=== PATIENT | male | born 1965 | race Caucasian/White ===

== ENCOUNTER 2024-10-07 07:20 | Emergency (ER) | payer MEDICARE, SELFPAY ==
[2024-10-07 07:26] VITALS: BP 176/86; PULSE 75; RESP 16; TEMP 36.8; O2SAT 100
--- NOTE | 2024-10-07 07:45 | DI.RAD_ITS ---
Exam(s) XR HAND LT COMPLETE EXAM: XR HAND LT COMPLETE CLINICAL HISTORY: pain. TECHNIQUE: 2D digital imaging was performed. COMPARISON: CR,XR XR HAND RT COMPLETE from 10/07/2024 FINDINGS: 3 views No evidence of fracture nor subluxations. No osseous lesions nor erosions. No radiopaque foreign bodies. Metacarpophalangeal joints appear unremarkable. There are mild degenerative changes in the DIP joints. Bone density normal. No osseous lesions. IMPRESSION: Acute osseous findings. DATA REPOSITORY: RADIATION DOSE DELIVERED:
--- NOTE | 2024-10-07 07:45 | DI.RAD_ITS ---
Exam(s) XR HAND RT COMPLETE EXAM: XR HAND RT COMPLETE CLINICAL HISTORY: pain. TECHNIQUE: 2D digital imaging was performed. COMPARISON: CR,XR XR HAND LT COMPLETE from 10/07/2024 FINDINGS: 3 views No evidence of acute fracture or subluxation. Mild degenerative changes are noted in the DIP joints. There is a benign-appearing bony excrescence off the lateral aspect the scaphoid-navicular bone. There is also a small degenerative subarticular cyst at this level. Scapholunate distance is normal. No evidence of avascular necrosis. No significant ulnar variance at the wrist. Slight deformity of the 5th right metacarpal bone noted which is probably related to remote healed fracture. IMPRESSION: Findings as above but no acute fractures Bony excrescence off the lateral aspect of the scaphoid-navicular bone noted which measures 5 x 5 mm. DATA REPOSITORY: RADIATION DOSE DELIVERED:
--- NOTE | 2024-10-07 07:53 | ED.GENADUL_ITS ---
Discharge Plan Disposition Patient Disposition: Home Condition: Stable Discharge Details Clinical Impression: Bilateral hand pain Primary Care Provider: Joie,Local ED Provider: Arun Lange Home Meds and New Rx's Prescriptions: Continued simvastatin 20 mg tablet 20 mg PO DAILY glipizide 10 mg tablet 10 mg PO BID insulin glargine [Basaglar KwikPen U-100 Insulin] 100 unit/mL (3 mL) insulin pen 24 unit subcut DAILY buspirone 5 mg tablet 5 mg PO DAILY hydrochlorothiazide 12.5 mg capsule 12.5 mg PO DAILY trazodone 150 mg tablet 150 mg PO QHS PRN Discharge Instructions Additional Instructions: Your x-ray showed evidence of degenerative joint disease, there is no fractures. Follow-up with your primary care provider if the pain continues in a week. You can take 1000 mg of acetaminophen and 600 mg of ibuprofen every 6 hours as needed. If you feel more ill or have new symptoms such as high fevers return to the emergency department for reevaluation. HPI General Mode of arrival: ambulatory . Date/Time Provider Initiated Documentation: 10/07/24 07:36 . Limitations to Documentation: no limitations . Information obtained by: patient . History of Present Illness 59 year old M presents to the emergency department with the chief complaint of bilateral hand pain, described as mild, Quality is described as aching, Patient started experiencing this day(s) (2) and it has been constant. No relieving factors improve symptom(s), No exacerbating factors reported . Patient notes denies fever/chills. Patient did receive the following treatments prior to arrival, NSAID Related Data Home Medications ?Medication ?Instructions ?Recorded ?Confirmed buspirone 5 mg tablet 5 mg PO DAILY 10/07/2410/07 glipizide 10 mg tablet 10 mg PO BID 10/07/24 hydrochlorothiazide 12.5 mg capsule 12.5 mg PO DAILY 0 10/07/24 10/07/24 insulin glargine 100 unit/mL (3 24 unit subcut DAILY 0 10/07/24 10/07/24 mL) subcutaneous pen (Basaglar KwikPen U-100 Insulin) simvastatin 20 mg tablet 20 mg PO DAILY 10/07/2409/16 trazodone 150 mg tablet 150 mg PO QHS PRN 10/07/24 0 10/07/24 Allergies Allergy/AdvReac Type Severity Reaction Status Date / Time Latex, Natural Rubber Allergy Anaphylaxis Verified 10/07/24 07:31 General Stated Complaint: Orthopedic MANJEET: 4 Review of Systems All systems reviewed & are unremarkable except as noted in HPI and below Constitutional Constitutional: Denies chills, Denies fever(s) and Denies weakness Cardiovascular Cardiovascular: Denies dyspnea Respiratory Respiratory: Denies dyspnea Integumentary/Breasts Skin/Breast: Denies rash Neurologic Neurologic: Denies weakness Exam Const General: no acute distress Orientation: alert HENWY Head: normal to inspection Ears: external ears normal General nose exam: external nose normal Mouth: moist mucous membranes Eyes General: appearance normal, both eyes and all related structures Neck Neck: normal visual inspection Resp Effort & Inspection: normal respiratory effort and able to speak in complete sentences Cardio Rate: regular rate Skin General skin exam: no rashes or lesions noted Neuro General: patient alert and patient oriented x3 Extrem General: full ROM and capillary refill normal Psych Mental Status: mental status grossly normal Course Vital Signs Vital signs: Vital Signs Temperature 36.8 C 10/07/24 07:26 Pulse 75 10/07/24 07:26 Respiratory Rate 16 10/07/24 07:26 Blood Pressure 176/86 H 10/07/24 07:26 Pulse Oximetry 100 10/07/24 07:26 Temperature 36.8 C 10/07/24 07:26 Temperature Source Oral 10/07/24 07:26 Pulse 75 10/07/24 07:26 Respiratory Rate 16 10/07/24 07:26 Blood Pressure 176/86 H 10/07/24 07:26 Blood Pressure Position Sitting 10/07/24 07:26 Pulse Oximetry 100 10/07/24 07:26 Oxygen Delivery Method Room Air 10/07/24 07:26 Oxygen Flow Rate 0 10/07/24 07:26 Medical Decision Making 59-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 Denies any trauma or falls. Note fevers or chills, denies any drug use. 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 He has tenderness to both bilateral posterior hands and also in his fingers. He has full range of motion, there is no visible or palpable deformities. No tenderness in the wrist with full range of motion of the wrist. He has intact 2+ radial and ulnar pulses. There is no swelling of the arms. I suspect arthritis versus overuse, will check basic labs to screen for electrolyte abnormalities and obtain x-rays to exclude pathological fractures. Labs and imaging unremarkable, does have evidence of degenerative joint disease. He is stable. He will follow-up with his PCP if symptoms continue and return precautions given. PFSH All Active Problems (Updated 10/07/24 @ 09:18 by Arun Lange MD) Bilateral hand pain (Acute) Social History Smoking risk assessment performed?: No Do you feel safe at home: Yes Do you feel safe in your relationship?: Yes
[2024-10-07 08:18] LABS: Abs Immature Grans 0.07 10^3/uL (0.0-0.06); HCT 45.8 % (40.0-50.0); HGB 16.2 g/dL (13.5-17.5); Immature Grans % 0.5 %; MCH 30.2 pg (27.0-33.0); MCHC 35.4 % (32.0-36.0); MCV 85 fL (80-95); MPV 10.7 fL (8.0-11.0); Platelet Count 183 10^3/uL (130-400); RBC 5.36 10^6/uL (4.36-5.78); RDW 12.2 % (11.8-14.1); RDW-SD 37.8 fL; WBC 13.03 10^3/uL (4.4-10.8)
[2024-10-07 08:42] LABS: ALT 17 U/L (16-63); AST 11 U/L (15-37); Albumin 4.1 g/dL (3.4-5.0); Alkaline Phosphatase 90 U/L (46-116); Anion Gap 8.0 mmol/L (3-11); BUN 19 mg/dL (7-18); Bilirubin, Total 0.5 mg/dL (0.2-1.0); CO2 28.0 mmol/L (21.0-32.0); Calcium 9.4 mg/dL (8.5-10.1); Chloride 101 mmol/L (98-107); Estimated GFR 76.37 (mL/min/1.73m2); Glucose 181 mg/dL (74-106); Magnesium 1.9 mg/dL (1.8-2.4); Potassium 3.7 mmol/L (3.5-5.1); Sodium 137 mmol/L (136-145); Total Protein 8.0 g/dL (6.4-8.2)
--- NOTE | 2024-10-07 09:08 | DI.VRAD_ITS ---
PROCEDURE INFORMATION: Exam: XR Right Hand Exam date and time: 10/07/2024 8:37 AM Age: 59 years old Clinical indication: Other: Pain; Additional info: PT unable to fan fingers TECHNIQUE: Imaging protocol: Radiologic exam of the right hand. Views: 3 or more views. COMPARISON: No relevant prior studies available. FINDINGS: Bones/joints: There is joint space narrowing in the DIP joints and PIP joints of the fingers and IP joint of the thumb consistent with degenerative changes. Degenerative changes in the radiocarpal joint. Small exostosis off the scaphoid. There is no evidence of acute fracture.There is no evidence of malalignment or dislocation. Soft tissues: Normal. IMPRESSION: 1. There is joint space narrowing in the DIP joints and PIP joints of the fingers and IP joint of the thumb consistent with degenerative changes. 2. There is no evidence of acute fracture.There is no evidence of malalignment or dislocation. Dictated and Authenticated by: Erica Sullivan MD. Orderin Nazario Dias MD
--- NOTE | 2024-10-07 09:11 | DI.VRAD_ITS ---
PROCEDURE INFORMATION: Exam: XR Left Hand Exam date and time: 10/07/2024 8:39 AM Age: 59 years old Clinical indication: Other: Pain; PT unable to fan fingers TECHNIQUE: Imaging protocol: Radiologic exam of the left hand. Views: 3 or more views. COMPARISON: No relevant prior studies available. FINDINGS: Bones/joints: There is joint space narrowing in the DIP joints and PIP joints of the fingers and IP joint of the thumb consistent with degenerative changes. There is no evidence of acute fracture.There is no evidence of malalignment or dislocation. Soft tissues: Normal. IMPRESSION: 1. There is joint space narrowing in the DIP joints and PIP joints of the fingers and IP joint of the thumb consistent with degenerative changes. 2. There is no evidence of acute fracture.There is no evidence of malalignment or dislocation. Dictated and Authenticated by: Erica Sullivan MD. Orderin Nazario Dias MD
[2024-10-07] MEDS: Ibuprofen 400 MG TAB PO (09:49)
== END 2024-10-07 09:50 | disposition home or self-care (01) ==
LOC: ER 09:55
PROVIDERS: Emergency Provider Emergency Medicine
DX: M79.641 Pain in right hand (principal); M79.642 Pain in left hand
CPT/HCPCS: 99283; 99284; 80053; 73130; 83735; 85025